=== PATIENT | female | born 1975 | race Caucasian/White ===

== ENCOUNTER 2017-10-28 10:13 | Outpatient (CLI) | payer MEDICARE, MEDICAID ==
--- NOTE | 2017-10-29 15:31 | RAD ---
MODIFIED BARIUM SWALLOW IN THE PRESENCE OF THE SPEETH PATHOLOGIST: HISTORY: Dysphagia. Feeding difficulties. COMPARISON: None. FINDINGS/IMPRESSION: In the presence of the speech pathologist, the patient was administered puree, nectar thick and thin liquid, and ground texture consistencies, as well as a barium tablet. There is evidence of penetrati on and aspiration. Please refer to the speech pathologist's report for feeding recommendations. POS: [facility]
== END 2017-10-28 10:14 | disposition home or self-care (01) ==
PROVIDERS: ATTEND Nurse Practitioner Family
DX: R13.10 Dysphagia, unspecified (principal); R63.3 Feeding difficulties
CPT/HCPCS: 74230; G8996-GN-CJ; G8997-GN-CI; G8998-GN-CJ

== ENCOUNTER 2021-03-13 08:57 | Outpatient (CLI) | payer MEDICARE, MEDICAID ==
[2021-03-14 11:50] LABS: SARS-CoV-2 PCR by NAA Not Detected (NotDetected)
== END 2021-03-13 08:58 | disposition home or self-care (01) ==
LOC: LABBT 08:57
PROVIDERS: ATTEND Internal Medicine Gastroenterology
DX: Z01.812 Encounter for preprocedural laboratory examination (principal); K21.9 Gastro-esophageal reflux disease without esophagitis; D50.9 Iron deficiency anemia, unspecified; Z20.822 Contact with and (suspected) exposure to COVID-19
CPT/HCPCS: U0003; U0005

== ENCOUNTER 2021-03-16 05:59 | Day surgery (SDC) | payer MEDICARE, MEDICAID ==
[2021-03-08 11:39] VITALS: BMI 17.4
[2021-03-16] MEDS ORDERED: Lidocaine 1% PF 5 ML VIAL ONE (07:30)
[2021-03-16] MEDS ORDERED: PROPOFOL 200 MG/20 ML VIAL ONE (07:30)
== END 2021-03-16 09:15 | disposition home or self-care (01) ==
LOC: SDC 05:59
PROVIDERS: ATTEND Internal Medicine Gastroenterology
PROC: 0DJ08ZZ Inspection of Upper Intestinal Tract, Via Natural or Artificial Opening Endoscopic (ICD-10-PCS; principal; 2021-03-16)
PROC: 0W3P8ZZ Control Bleeding in Gastrointestinal Tract, Via Natural or Artificial Opening Endoscopic (ICD-10-PCS; 2021-03-16)
DX: D50.9 Iron deficiency anemia, unspecified (principal); K55.21 Angiodysplasia of colon with hemorrhage; K21.9 Gastro-esophageal reflux disease without esophagitis; E11.9 Type 2 diabetes mellitus without complications; I10 Essential (primary) hypertension; E03.9 Hypothyroidism, unspecified; Z79.4 Long term (current) use of insulin; Z79.84 Long term (current) use of oral hypoglycemic drugs; Z79.899 Other long term (current) drug therapy; Z88.2 Allergy status to sulfonamides
CPT/HCPCS: 36416; J2704

== ENCOUNTER 2021-06-27 08:04 | Day surgery (SDC) | payer MEDICARE, MEDICAID ==
[2021-06-23 13:02] VITALS: BMI 18.5
[2021-06-27] MEDS ORDERED: PROPOFOL 200 MG/20 ML VIAL ONE (09:31)
== END 2021-06-27 11:26 | disposition home or self-care (01) ==
LOC: SDC 08:04
PROVIDERS: ATTEND Internal Medicine Gastroenterology
PROC: 0DJD8ZZ Inspection of Lower Intestinal Tract, Via Natural or Artificial Opening Endoscopic (ICD-10-PCS; principal; 2021-06-27)
DX: Z09 Encounter for follow-up examination after completed treatment for conditions other than malignant neoplasm (principal); D50.0 Iron deficiency anemia secondary to blood loss (chronic); E11.9 Type 2 diabetes mellitus without complications; K21.9 Gastro-esophageal reflux disease without esophagitis; I10 Essential (primary) hypertension; E03.9 Hypothyroidism, unspecified; Z79.4 Long term (current) use of insulin; Z79.84 Long term (current) use of oral hypoglycemic drugs; Z79.890 Hormone replacement therapy; Z79.899 Other long term (current) drug therapy; Z88.2 Allergy status to sulfonamides
CPT/HCPCS: J2704

== ENCOUNTER 2021-09-22 08:07 | Outpatient (CLI) | payer MEDICARE, MEDICAID ==
[2021-09-22] MEDS ORDERED: Iopamidol 370 76% 100 ML VIAL ONE (10:38)
== END 2021-09-22 08:08 | disposition home or self-care (01) ==
LOC: CT 08:07
PROVIDERS: ATTEND Physician Assistant Medical
DX: D50.0 Iron deficiency anemia secondary to blood loss (chronic) (principal); N13.30 Unspecified hydronephrosis; N13.4 Hydroureter; N32.89 Other specified disorders of bladder; K63.89 Other specified diseases of intestine; K83.8 Other specified diseases of biliary tract
CPT/HCPCS: 74178; 82565; Q9967